=== PATIENT | male | born 1955 | race Caucasian/White ===

== ENCOUNTER → 2016-11-03 | Outpatient (CLI) | payer BC ==
[2016-11-03 08:42] LABS: Basophils % (A) 1 %; CH 29.7; CHCM 33.8; Eosinophils # (A) 0.2 k/uL (0-0.7); Eosinophils % (A) 3 %; HCT 39.3 % (39.0-53.0); HDW 2.36; Luc % (Auto) 3; Lymphocytes # (A) 1.9 k/uL (1.0-4.8); Lymphocytes % (A) 31 %; MCH 31.4 pg (25.0-35.0); MCHC 35.5 g/dL (31.0-37.0); MCV 88.2 fL (80.0-100.0); Mean Platelet Volume 7.7; Monocytes # (A) 0.4 k/uL (0-1.0); Monocytes % (A) 7 %; Neutrophils # (A) 3.3 k/uL (1.3-7.7); Neutrophils % (A) 55 %; RBC 4.45 m/uL (4.30-5.90); RDW 13.3 % (11.5-15.5); WBC (Perox) 6.07
[2016-11-03 10:29] LABS: ALT 43 U/L (21-72); AST 33 U/L (17-59); Alkaline Phosphatase 66 U/L (38-126); Anion Gap 10 mmol/L; Blood Urea Nitrogen 17 mg/dL (9-20); Calcium 9.4 mg/dL (8.4-10.2); Carbon Dioxide 26 mmol/L (22-30); Chloride 106 mmol/L (98-107); Cholesterol 149 mg/dL (<200); Glucose 81 mg/dL (74-99); HDL Cholesterol 54 mg/dL (40-60); Non-African American GFR(MDRD) 52 (>60 ml/min/1.73 sqM); Sodium 142 mmol/L (137-145); Total Bilirubin 0.4 mg/dL (0.2-1.3); Total Protein 6.5 g/dL (6.3-8.2); Triglycerides 90 mg/dL (<150)
[2016-11-03 14:03] LABS: Hemoglobin A1C 6.9 % (4.2-6.1)
== END | disposition home or self-care (01) ==
LOC: LABWHC1 08:08
PROVIDERS: ATTEND Internal Medicine
DX: E03.9 Hypothyroidism, unspecified (principal); I10 Essential (primary) hypertension; E11.9 Type 2 diabetes mellitus without complications; Z79.4 Long term (current) use of insulin
CPT/HCPCS: 36415; 80053; 80061; 83036; 84443; 85025

== ENCOUNTER → 2016-12-11 | Outpatient (CLI) | payer BC ==
[2016-12-11 12:55] LABS: Potassium 4.2 mmol/L (3.5-5.1)
== END | disposition home or self-care (01) ==
LOC: LABWHC1 12:15
PROVIDERS: ATTEND Orthopaedic Surgery Hand Surgery
DX: G56.03 Carpal tunnel syndrome, bilateral upper limbs (principal)
CPT/HCPCS: 36415; 80051

== ENCOUNTER 2017-06-06 07:31 | Day surgery (SDC) | payer BC ==
[2017-05-29 11:39] VITALS: BMI 35.9
[~2017-06-06 07:31] MED LIST: HEPARIN SODIUM,PORCINE 5,000 UNIT/ML 1 ML VIAL SQ ONE; HYDROmorphone 0.5 MG/0.5 ML SYRINGE IVP PRN; LACTATED RINGERS 1,000 ML IV SCH
[2017-06-06 08:25] LABS: Glucose,Whole Blood 118 mg/dL (75-99)
[2017-06-06] MEDS: LIDOCAINE 1% 20 ML VIAL (10MG/ML) FOR IV START INTRADERMA PRN ×2 (08:45→08:50)
[2017-06-06] MEDS ORDERED: DEXAMETHASONE SOD PHOSPHATE 10 MG/ML 1 ML VIAL IV ONE (08:50)
[2017-06-06] MEDS ORDERED: ONDANSETRON 4 MG/2 ML VIAL IVP ONE (08:52)
--- NOTE | 2017-06-06 09:32 | P.GSHP ---
History of Present Illness H&P Date: 06/06/17 Chief Complaint: Left inguinal and umbilical hernia Patient was seen in the office in February. Patient has complaints of a painful bulge in the left groin. This is been increasing in size. No nausea or vomiting. No change in bowel habits. No prior hernias. He also has a small bulge at the umbilicus which is nonpainful. Past Medical History Past Medical History: Diabetes Mellitus, Hyperlipidemia, Hypertension, Thyroid Disorder Additional Past Medical History / Comment(s): inguinal and umbilical hernia History of Any Multi-Drug Resistant Organisms: None Reported Past Surgical History: Orthopedic Surgery Additional Past Surgical History / Comment(s): left knee surgeries/left total knee replacement Past Anesthesia/Blood Transfusion Reactions: No Reported Reaction Past Psychological History: No Psychological Hx Reported Smoking Status: Never smoker Past Alcohol Use History: None Reported - Past Family History Mother Family Medical History: Hypertension Medications and Allergies Home Medications Medication Instructions Recorded Confirmed Type Aspirin 81 mg PO HS 05/29/17 05/29/17 History Insulin Aspart [NovoLOG] 0 units SQ [facility] 05/29/17 05/29/17 History Insulin Glargine [Lantus] 38 unit SQ HS 05/29/17 05/29/17 History Levothyroxine Sodium [Synthroid] 212 mcg PO DAILY 05/29/17 06/06/17 History Lisinopril-Hctz 20-25 mg 1 tab PO DAILY 05/29/17 05/29/17 History [Zestoretic 20-25] Metoprolol Tartrate [Lopressor] 25 mg PO BID 05/29/17 06/06/17 History Simvastatin [Zocor] 20 mg PO HS 05/29/17 05/29/17 History hydrALAZINE HCL 25 mg PO BID 05/29/17 05/29/17 History Allergies Allergy/AdvReac Type Severity Reaction Status Date / Time No Known Allergies Allergy Verified 06/06/17 08:01 Surgical - Exam Vital Signs Temp Pulse Resp BP Pulse Ox 97.8 F 49 L 18 140/71 95 06/06/17 08:23 06/06/17 08:23 06/06/17 08:23 06/06/17 08:23 06/06/17 08:23 Physical exam: General: Well-developed, well-nourished HEENT: Normocephalic, sclerae nonicteric Abdomen: Nontender, nondistended, reducible left inguinal hernia, no palpable right inguinal hernia, small reducible umbilical hernia Extremities: No edema Neuro: Alert and oriented Results - Labs Abnormal Lab Results - Last 24 Hours (Table) 06/06/17 Range/Units 08:20 POC Glucose (mg/dL) 118 H (75-99) mg/dL Assessment and Plan (1) Inguinal hernia Narrative/Plan: Will proceed with laparoscopic/robotic repair of the left inguinal hernia with mesh. Will repair the umbilical hernia at the conclusion of the case as well. This will be done in an open fashion possibly with mesh.Risks of bleeding, infection, recurrence, bladder and bowel injury, numbness, nerve injury, conversion to an open procedure were discussed with the patient. The patient understands and wishes to proceed. Current Visit: Yes Status: Acute Code(s): K40.90 - UNIL INGUINAL HERNIA, W/ O OBST OR GANGR, NOT SPCF RECUR SNOMED Code(s): 207627083
[2017-06-06] MEDS ORDERED: GLYCOPYRROLATE 0.2 MG/ML 2 ML VIAL ONE (09:47)
[2017-06-06] MEDS ORDERED: HYDROmorphone (PF) 1 MG/ML ONE (09:47)
[2017-06-06] MEDS ORDERED: ePHEDrine SULFATE/0.9% NACL/PF 50 MG/5 ML SYRINGE IV ONE (09:47)
[2017-06-06] MEDS ORDERED: PROPOFOL 10 MG/ML 20 ML VIAL IV ONE (09:47)
[2017-06-06] MEDS ORDERED: fentaNYL (PF) 50 MCG/ML 2 ML AMP ONE (09:47)
[2017-06-06] MEDS ORDERED: LIDOCAINE 1% INJ 10MG/ML (20 ML MDV) ONE (09:47)
[2017-06-06] MEDS ORDERED: ROCURONIUM BROMIDE 10 MG/ML 10 ML VIAL IV ONE (09:47)
[2017-06-06] MEDS ORDERED: SUCCINYLCHOLINE CHLORIDE 100 MG/5 ML SYR IV ONE (09:47)
[2017-06-06] MEDS ORDERED: MIDAZOLAM 2 MG/2 ML VIAL ONE (09:47)
[2017-06-06] MEDS ORDERED: NEOSTIGMINE 1 MG/ML 10 ML VIAL ONE (09:47)
[2017-06-06] MEDS ORDERED: BUPIVACAINE (PF) 0.25% 30 ML VIAL SQ ONE (10:33)
[2017-06-06 11:15] LABS: Glucose,Whole Blood 87 mg/dL (75-99)
[2017-06-06 12:40] VITALS: RESP 16; TEMP 96.8
[2017-06-06 12:53] LABS: Glucose,Whole Blood 139 mg/dL (75-99)
[2017-06-06] MEDS ORDERED: NALOXONE 0.4 MG/ML 1 ML VIAL IV PRN (13:03)
[2017-06-06] MEDS ORDERED: HYDROcodone/APAP 5-325MG 1 EACH TAB PO PRN (13:03)
--- NOTE | 2017-06-06 13:03 | P.OP ---
Date of Procedure: 06/06/17 Procedure(s) Performed: PREOPERATIVE DIAGNOSIS: Left inguinal hernia, umbilical hernia POSTOPERATIVE DIAGNOSIS: Same PROCEDURE: Laparoscopic repair left inguinal hernia with the da Lopez robot assistance with mesh, umbilical herniorrhaphy with mesh SURGEON: Sonia EBL: Minimal ANESTHESIA: General COMPLICATIONS: None OPERATIVE PROCEDURE: Patient was placed in the operating table in the supine position. The patient was placed under general anesthesia. The patient was then placed in lithotomy. The abdomen was prepped and draped in usual sterile fashion. A small curvilinear supraumbilical incision was made. The umbilical hernia was carefully dissected. The hernia sac was excised. The fascia was circumferentially cleared. The 12 mm trocar was advanced into the perineal cavity under direct visualization. Insufflation took place. 2 additional 8 mm trochars were placed in the right upper quadrant and left upper quadrant under visualization. The robotic arms were then brought in and docked into place. The fenestrated bipolar was used in the left arm and the laparoscopic jerri was utilized in the right arm. A 30 12 mm scope was used in the up position. The peritoneal cavity was inspected. No evidence of writing or hernia was seen. The left groin revealed a large indirect hernia with some scarring to the sigmoid colon. The peritoneum was incised in a horizontal fashion cephalad to the internal inguinal ring. Following that careful dissection of the preperitoneal space took place. This took place using both electrocautery, sharp dissection but primarily blunt dissection. Visualization of the pubic tubercle and Dae's ligament took place medially. Full dissection took place laterally as well. The patient's hernia was quite large but fully dissected. Once we had adequate space the 15 x 10 progrip mesh was advanced into the preperitoneal space and flattened out appropriately to cover all potential hernia sites. No sutures were used. The peritoneal defect was then closed using a locking 2-0 VLok suture. The reduced hernia sac was incorporated into our closure anteriorly. The pneumoperitoneum was then evacuated. A 4 cm ventral ex mesh was placed beneath the fascial defect at the umbilicus. This was sutured in place using trans-fascial 0 Ethibond sutures. The fascia was reapproximated using [id number] 0 Ethibond sutures. The skin of all 3 sites was closed using a 4-0 Monocryl stitch. Steri-Strips and sterile dressings were applied. DISPOSITION: Stable to recovery room
[2017-06-06 14:09] VITALS: BP 133/74; PULSE 55
== END 2017-06-06 14:37 | disposition home or self-care (01) ==
LOC: OR 07:31
PROVIDERS: ATTEND Surgery
DX: K40.90 Unilateral inguinal hernia, without obstruction or gangrene, not specified as recurrent (principal); K42.9 Umbilical hernia without obstruction or gangrene; E11.9 Type 2 diabetes mellitus without complications; Z79.4 Long term (current) use of insulin; E66.9 Obesity, unspecified; Z68.35 Body mass index [BMI] 35.0-35.9, adult; E78.5 Hyperlipidemia, unspecified; I10 Essential (primary) hypertension; E07.9 Disorder of thyroid, unspecified; G47.33 Obstructive sleep apnea (adult) (pediatric); Z99.89 Dependence on other enabling machines and devices; Z79.82 Long term (current) use of aspirin; Z79.899 Other long term (current) drug therapy
CPT/HCPCS: 49650; S2900; 88302; 93005

== ENCOUNTER 2018-10-29 10:37 | Day surgery (SDC) | payer BC ==
[2018-10-24 14:21] VITALS: BMI 37.0
[~2018-10-29 10:37] MED LIST changes: -HEPARIN SODIUM,PORCINE 5,000 UNIT/ML 1 ML VIAL SQ ONE; -HYDROmorphone 0.5 MG/0.5 ML SYRINGE IVP PRN; -LACTATED RINGERS 1,000 ML IV SCH; +LIDOCAINE 1% 20 ML VIAL (10MG/ML) FOR IV START INTRADERMA PRN
[2018-10-29 11:07] VITALS: TEMP 97.4
[2018-10-29] MEDS: LACTATED RINGERS 1,000 ML IV SCH ×2 (11:24→11:51)
[2018-10-29 11:28] LABS: Glucose,Whole Blood 198 mg/dL (75-99)
[2018-10-29] MEDS ORDERED: LIDOCAINE 1% INJ 10MG/ML (20 ML MDV) ONE (11:53)
[2018-10-29] MEDS ORDERED: PROPOFOL 10 MG/ML 20 ML VIAL IV ONE (11:53)
--- NOTE | 2018-10-29 12:02 | P.GSHP ---
History of Present Illness H&P Date: 10/29/18 Chief Complaint: Colon cancer screening Patient today for colonoscopy. Last colonoscopy 11 years ago. No bowel related complaints. No family history of colon cancer. Past Medical History Past Medical History: Diabetes Mellitus, Hyperlipidemia, Hypertension, Thyroid Disorder Additional Past Medical History / Comment(s): inguinal and umbilical hernia History of Any Multi-Drug Resistant Organisms: None Reported Past Surgical History: Hernia Repair, Joint Replacement, Orthopedic Surgery Additional Past Surgical History / Comment(s): left knee surgeries/. left total knee replacement. colonoscopy Past Anesthesia/Blood Transfusion Reactions: No Reported Reaction Smoking Status: Never smoker - Past Family History Mother Family Medical History: Hypertension Medications and Allergies Home Medications Medication Instructions Recorded Confirmed Type Aspirin 81 mg PO HS 05/29/17 10/29/18 History Insulin Aspart [NovoLOG] 0 units SQ [facility] 05/29/17 10/29/18 History Insulin Glargine [Lantus] 34 unit SQ HS 05/29/17 10/29/18 History Levothyroxine Sodium [Synthroid] 212 mcg PO DAILY 05/29/17 10/29/18 History Lisinopril-Hctz 20-25 mg 1 tab PO DAILY 05/29/17 10/29/18 History [Zestoretic 20-25] Metoprolol Tartrate [Lopressor] 25 mg PO BID 05/29/17 10/29/18 History Simvastatin [Zocor] 20 mg PO HS 05/29/17 10/29/18 History hydrALAZINE HCL 25 mg PO BID 05/29/17 10/29/18 History Allergies Allergy/AdvReac Type Severity Reaction Status Date / Time No Known Allergies Allergy Verified 10/29/18 11:08 Surgical - Exam Vital Signs Temp Pulse Resp BP Pulse Ox 97.4 F L 45 L 16 155/79 98 10/29/18 11:05 10/29/18 11:05 10/29/18 11:05 10/29/18 11:05 10/29/18 11:05 Physical exam: General: Well-developed, well-nourished HEENT: Normocephalic, sclerae nonicteric Abdomen: Nontender, nondistended Extremities: No edema Neuro: Alert and oriented Results - Labs Abnormal Lab Results - Last 24 Hours (Table) 10/29/18 Range/Units 11:21 POC Glucose (mg/dL) 198 H (75-99) mg/dL Assessment and Plan (1) Colon cancer screening Narrative/Plan: Will proceed with colonoscopy at this time. Current Visit: Yes Status: Acute Code(s): Z12.11 - ENCOUNTER FOR SCREENING FOR MALIGNANT NEOPLASM OF COLON SNOMED Code(s): 119669718
--- NOTE | 2018-10-29 12:17 | P.PCN ---
Date of Procedure: 10/29/18 Procedure(s) Performed: PREOPERATIVE DIAGNOSIS: Colon cancer screening POSTOPERATIVE DIAGNOSIS: Normal exam PROCEDURE: Colonoscopy ANESTHESIA: MAC SURGEON: Jose Scott M.D. SPECIMENS: None ENDOSCOPIC PROCEDURE: The patient was placed on the endoscopy table in the left decubitus position. The Olympus colonoscope was inserted into the anus and passed under direct visualization to the base of the cecum. The appendiceal orifice was visualized. From that point the scope was slowly withdrawn inspecti ng all surfaces carefully. There were no neoplastic inflammatory or polypoid lesions throughout the cecum, ascending, transverse, descending, sigmoid and rectum. There was no visible diverticulosis noted. Patient's right side of his colon had a somewhat suboptimal prep. The remainder of the colon was able to visualize nicely. Digital rectal examination was normal. The patient was taken to the recovery room in stable condition per anesthesia guidelines. RECOMMENDATIONS: Increase fiber. Follow-up colonoscopy 10 years.
[2018-10-29 12:38] VITALS: BP 138/77; PULSE 52; RESP 18
== END 2018-10-29 12:52 | disposition home or self-care (01) ==
LOC: ORWHC2ENDO 10:37
PROVIDERS: ATTEND Surgery
DX: Z12.11 Encounter for screening for malignant neoplasm of colon (principal); E11.9 Type 2 diabetes mellitus without complications; E78.5 Hyperlipidemia, unspecified; I10 Essential (primary) hypertension; E07.9 Disorder of thyroid, unspecified; Z96.652 Presence of left artificial knee joint; Z79.82 Long term (current) use of aspirin; Z79.890 Hormone replacement therapy; Z79.4 Long term (current) use of insulin; Z79.899 Other long term (current) drug therapy
CPT/HCPCS: J2001; J2704; G0121

== ENCOUNTER → 2020-05-21 | Outpatient (CLI) | payer BC ==
--- NOTE | 2020-05-21 14:31 | CT ---
EXAMINATION TYPE: CT wrist RT wo con DATE OF EXAM: 05/21/2020 COMPARISON: None. HISTORY: Rt wrist pain, Colles' fracture distal radius. CT DLP: 118.5 mGycm Automated exposure control for dose reduction was used. FINDINGS: Overlying cast or splint material is present. There is acute comminuted minimally displaced intra-art icular fracture through the distal radial meta-epiphysis. Articulating surfaces fairly well maintaine d with a few punctate ossifications along the dorsal aspect extending into the radiocarpal joint for reference axial image 47. Adjacent ulna is intact. Carpal joint spaces overall are maintained. There are some scattered subchondral cysts noted througho ut the wrist joint. There is moderate diffuse subcutaneous edema and soft tissue swelling noted. IMPRESSION: As above.
== END | disposition home or self-care (01) ==
LOC: RADCTMAIN 13:40
PROVIDERS: ATTEND Physician Assistant
DX: S52.571A Other intraarticular fracture of lower end of right radius, initial encounter for closed fracture (principal); S52.531A Colles' fracture of right radius, initial encounter for closed fracture